=== PATIENT | male | born 1950 | race Caucasian/White ===

== ENCOUNTER → 2016-10-14 | Outpatient (REF) | payer MEDICARE, MEDICAID ==
[~2016-10-14] MED LIST: /ADVA50050; /AMIO20TA OR; /TIOT18INH INH; ACEP650S PR; ACET-654 PO; ACET650S3 PR; ADV250INH INH; ALBU83IN INH; ALDA25TA2 OR; ALDA25TA2 PO; AMLO10TA PO; AMOX875T2 PO; ASPI325T OR; ASPI81TA13 PO; ASPI81TA83 OR; ASPI81TA85 PO; ATOR1TAB19 PO; AVEELOT EXT; BISO10TA PO; CARDIZEM PO; CELE20TA PO; CICL0.776 TOP; COLA100C2 OR; DIGO0.25 PO; DILT240C56 PO; DULC10SU2 PR; DULC5TAB PO; ENEMENE3 PR; FLEEENE4 PR; FURO1TAB15 PO; GEMF600T PO; HALO20TA PO; LANO0.1211 OR; LASI40TA OR; LEVA12INH INH; LEVA500T PO; METF500T PO; METO25TAB PO; MILKSUS PO; MULTCAP11 PO; NICO21DI4 TD; OMEP20CA3 PO; OXYGEN INH; POTA1TAB14 PO; PRED10TA PO; PRED10TA2 OR; PRED20TA PO; PRED5TA PO; PRED5TAB OR; PRIL20CA OR; QUET5TAB PO; SENO8.6T5 OR; SPIR1CAP INH; TORS100T12 PO; TYLE325T5 PO; VIBR100C PO; XOPE1.252 IN; ZOCO5TAB OR; cpap; mucinex PO
[2016-10-14 10:30] LABS: CREATININE FOR GFR 2.11 MG/DL (0.70-1.30); GLOMERULAR FILTRATION RATE 33.6 (>49); POTASSIUM SERUM 4.2 MEQ/L (3.5-5.1)
== END ==
LOC: SKLAB4 10:14
PROVIDERS: ATTEND Family Medicine
DX: I50.9 Heart failure, unspecified (principal); Z79.899 Other long term (current) drug therapy

== ENCOUNTER → 2016-11-04 | Outpatient (REF) | payer MEDICARE, MEDICAID ==
[~2016-11-04] MED LIST changes: -DILT240C56 PO; +DILT240C77 PO; +TORS100T PO; -TORS100T12 PO
[2016-11-04 08:57] LABS: ALBUMIN 3.1 GM/DL (3.2-5.2); ALBUMIN/GLOBULIN RATIO 0.65 (1.00-1.93); BILIRUBIN,DIRECT 0.1 MG/DL (0.0-0.2); BILIRUBIN,TOTAL 0.3 MG/DL (0.2-1.0); CALCIUM LEVEL 8.6 MG/DL (8.8-10.2); CREATININE FOR GFR 2.24 MG/DL (0.70-1.30); GLOMERULAR FILTRATION RATE 31.4 (>49); THYROXINE (T4) 6.2 UG/DL (4.5-12.0); TOTAL PROTEIN 7.9 GM/DL (6.4-8.2)
== END ==
LOC: SKLAB4 09:15
PROVIDERS: ATTEND Family Medicine
DX: I50.9 Heart failure, unspecified (principal); E11.9 Type 2 diabetes mellitus without complications; R56.9 Unspecified convulsions

== ENCOUNTER → 2017-01-04 | Outpatient (REF) | payer MEDICARE, MEDICAID ==
[2017-01-04 22:13] LABS: CALCIUM LEVEL 7.7 MG/DL (8.8-10.2); CREATININE FOR GFR 1.64 MG/DL (0.70-1.30); DIGOXIN LEVEL 0.8 NG/ML (0.5-2.0); POTASSIUM SERUM 4.3 MEQ/L (3.5-5.1)
== END ==
LOC: SKLAB4 19:45
PROVIDERS: ATTEND Family Medicine
DX: R19.7 Diarrhea, unspecified (principal)

== ENCOUNTER → 2017-02-17 | Outpatient (REF) | payer MEDICARE, MEDICAID ==
[2017-02-17 08:54] LABS: CALCIUM LEVEL 8.7 MG/DL (8.8-10.2); CREATININE FOR GFR 1.83 MG/DL (0.70-1.30); GLOMERULAR FILTRATION RATE 39.6 (>49); POTASSIUM SERUM 3.9 MEQ/L (3.5-5.1)
== END ==
LOC: SKLAB4 11:31
PROVIDERS: ATTEND Family Medicine
DX: I50.9 Heart failure, unspecified (principal)

== ENCOUNTER → 2017-02-24 | Outpatient (REF) | payer MEDICARE, MEDICAID | LOC: SKLAB4 08:00 | PROVIDERS: ATTEND Family Medicine | DX: E03.9 Hypothyroidism, unspecified (principal) ==

== ENCOUNTER → 2017-03-11 | Outpatient (REF) | payer MEDICARE, MEDICAID | LOC: SKLAB4 13:38 | PROVIDERS: ATTEND Family Medicine | DX: E11.9 Type 2 diabetes mellitus without complications (principal) ==

== ENCOUNTER → 2017-03-12 | Outpatient (REF) | payer MEDICARE, MEDICAID | LOC: SKLAB4 16:54 | PROVIDERS: ATTEND Family Medicine | DX: Z00.00 Encounter for general adult medical examination without abnormal findings (principal) ==

== ENCOUNTER → 2017-03-17 | Outpatient (REF) | payer MEDICARE, MEDICAID | LOC: SKLAB4 08:26 | PROVIDERS: ATTEND Family Medicine | DX: E78.5 Hyperlipidemia, unspecified (principal); E03.9 Hypothyroidism, unspecified ==

== ENCOUNTER → 2017-03-24 | Outpatient (REF) | payer MEDICARE, MEDICAID ==
[2017-03-24 10:40] LABS: CHOLESTEROL LEVEL 150 MG/DL (<200); FERRITIN 76 NG/ML (26-388); TRIGLYCERIDES LEVEL 497 MG/DL (<150)
[2017-03-24 14:16] LABS: ANION GAP 8 MEQ/L (8-16); BLOOD UREA NITROGEN 9 MG/DL (7-18); CALCIUM LEVEL 8.6 MG/DL (8.8-10.2); CARBON DIOXIDE LEVEL 29 MEQ/L (21-32); CHLORIDE LEVEL 100 MEQ/L (98-107); CREATININE FOR GFR 1.49 MG/DL (0.70-1.30); GLOMERULAR FILTRATION RATE 50.2 (>49); GLUCOSE, FASTING 168 MG/DL (80-110); POTASSIUM SERUM 4.3 MEQ/L (3.5-5.1); SODIUM LEVEL 137 MEQ/L (136-145)
== END ==
LOC: SKLAB4 09:44
PROVIDERS: ATTEND Family Medicine
DX: E11.9 Type 2 diabetes mellitus without complications (principal); D64.9 Anemia, unspecified

== ENCOUNTER → 2017-04-10 | Outpatient (REF) | payer MEDICARE, MEDICAID ==
[~2017-04-10] MED LIST changes: -ACET-654 PO; +ACET1TAB17 PO; -ASPI81TA13 PO; +ASPI81TA24 PO; +ENEMENE16 PR; -ENEMENE3 PR; -FURO1TAB15 PO; +FURO80TA2 PO; +LEVA1TAB2 PO; -LEVA500T PO; -METF500T PO; +METF500T13 PO
== END ==
LOC: SKLAB4 09:49
PROVIDERS: ATTEND Family Medicine
DX: E03.9 Hypothyroidism, unspecified (principal)

== ENCOUNTER → 2017-04-21 | Outpatient (REF) | payer MEDICARE, MEDICAID ==
[2017-04-21 10:53] LABS: CALCIUM LEVEL 8.6 MG/DL (8.8-10.2); CREATININE FOR GFR 1.56 MG/DL (0.70-1.30); GLOMERULAR FILTRATION RATE 47.5 (>49); POTASSIUM SERUM 4.4 MEQ/L (3.5-5.1)
== END ==
LOC: SKLAB4 09:46
PROVIDERS: ATTEND Family Medicine
DX: E11.9 Type 2 diabetes mellitus without complications (principal); I50.32 Chronic diastolic (congestive) heart failure

== ENCOUNTER → 2017-05-26 | Outpatient (REF) | payer MEDICARE, MEDICAID ==
[2017-05-26 10:50] LABS: CALCIUM LEVEL 8.7 MG/DL (8.8-10.2); CREATININE FOR GFR 1.59 MG/DL (0.70-1.30); GLOMERULAR FILTRATION RATE 46.5 (>49)
[2017-05-26 10:58] LABS: POTASSIUM SERUM 6.3 MEQ/L (3.5-5.1)
== END ==
LOC: SKLAB4 09:37
PROVIDERS: ATTEND Family Medicine
DX: I50.9 Heart failure, unspecified (principal)

== ENCOUNTER → 2017-05-27 | Outpatient (CLI) | payer MEDICARE ==
--- NOTE | 2017-06-01 10:30 | SLEEPCENT ---
DATE OF PROCEDURE: 05/27/2017 REFERRING PROVIDER: Dr. Godinez INTERPRETATION: Nocturnal recording polysomnography was performed for retitration of bilevel therapy on this patient with severe obstructive sleep apnea with an respiratory disturbance index (RDI) of 57.5 with significant nocturnal hypoxemia. Prior to the retitration, the patient was on bilevel therapy 18/10 with 10 liter of oxygen bleed in. A total of 7 hours and 37 minutes of data was reviewed for the entire titration. 362 minutes of sleep identified. Sleep latency was 4.5 minutes. Rapid eye movement( REM) latency was 62.5 minutes. No slow-wave sleep was identified. Sleep efficiency was 86.8%. In reviewing hypnogram, his sleep appeared quite fragmented. Electrocardiogram (EKG) appeared irregularly irregular and I could not clearly identify T waves on the tracing. Average heart rate was 88 beats per minute. Speeding and slowing were noted surrounding some respiratory events. No epileptiform discharge observed. The patient had been fitted with a Resmed Quattro full face of small size, bilevel therapy at 18/10 with a 10 liter bleed in was applied to the circuit and the lights were dimmed. Throughout the titration, bilevel therapy was increased from 18/10 to a maximum of 18/14, though he appeared to do reasonably well on 18/12. His oxygen was able to be titrated down from 10 to 7 liters. On the recommended pressure of 18/12 with a 7 liter bleed in, his apnea-hypopnea index (AHI) was 1.1 and his respiratory arousal index (PEREZ) was 1.4. Oxygen saturations were in the 90th percentile. Periodic limb movements were elevated at 37.5. IMPRESSION: 1. Obstructive sleep apnea, severe, reasonably palliated on bilevel therapy of 18/12, though his sleep was quite fragmented. Very little REM sleep was seen throughout the titration. 2. Hypoxemia requiring 7 liter oxygen bleed in to maintain saturations in the 90th percentile. 3. Periodic limb movements, moderate. RECOMMENDATIONS: Recommend continuation of bilevel therapy at 18/12 with a 7 liter bleed in via a small Resmed Quattro full face mask or mask of his preference. In reviewing the data, it may be possible to further lower his oxygen bleed in and follow him by serial overnight oximetry. Clinical correlation will also be necessary for eradication of symptoms. [facility]
== END ==
LOC: M SLEEP 19:15
PROVIDERS: ATTEND Internal Medicine Pulmonary Disease
DX: G47.33 Obstructive sleep apnea (adult) (pediatric) (principal)

== ENCOUNTER → 2017-05-30 | Outpatient (REF) | payer MEDICARE ==
[2017-05-30 07:23] LABS: CALCIUM LEVEL 8.4 MG/DL (8.8-10.2); CREATININE FOR GFR 1.54 MG/DL (0.70-1.30); GLOMERULAR FILTRATION RATE 48.2 (>49); POTASSIUM SERUM 4.1 MEQ/L (3.5-5.1)
== END ==
LOC: SKLAB4 08:00
PROVIDERS: ATTEND Family Medicine
DX: I50.9 Heart failure, unspecified (principal)

== ENCOUNTER → 2017-06-05 | Outpatient (REF) | payer MEDICARE ==
[2017-06-05 08:36] LABS: CALCIUM LEVEL 8.7 MG/DL (8.8-10.2); CREATININE FOR GFR 1.67 MG/DL (0.70-1.30); GLOMERULAR FILTRATION RATE 43.9 (>49); POTASSIUM SERUM 4.2 MEQ/L (3.5-5.1)
== END ==
LOC: SKLAB4 12:27
PROVIDERS: ATTEND Family Medicine
DX: I50.9 Heart failure, unspecified (principal)

== ENCOUNTER → 2017-06-18 | Outpatient (REF) | payer MEDICARE | LOC: SKLAB4 09:32 | PROVIDERS: ATTEND Family Medicine | DX: G47.30 Sleep apnea, unspecified (principal) ==

== ENCOUNTER → 2017-06-23 | Outpatient (REF) | payer MEDICARE ==
[2017-06-23 14:02] LABS: CALCIUM LEVEL 8.2 MG/DL (8.8-10.2); CREATININE FOR GFR 1.52 MG/DL (0.70-1.30); GLOMERULAR FILTRATION RATE 48.9 (>49); POTASSIUM SERUM 4.7 MEQ/L (3.5-5.1)
== END ==
LOC: SKLAB4 09:53
PROVIDERS: ATTEND Family Medicine
DX: I50.9 Heart failure, unspecified (principal)

== ENCOUNTER → 2017-07-21 | Outpatient (REF) | payer MEDICARE ==
[2017-07-21 08:42] LABS: MEAN CORPUSCULAR HGB CONC 31.6 g/dl (32.0-36.5); MEAN CORPUSCULAR VOLUME 94.8 fl (80.0-96.0); RED CELL DISTRIBUTION WIDTH 15.5 % (11.5-14.5); WHITE BLOOD COUNT 10.6 10^3/uL (4.0-10.0)
[2017-07-21 09:19] LABS: CALCIUM LEVEL 8.5 MG/DL (8.8-10.2); CREATININE FOR GFR 1.28 MG/DL (0.70-1.30); DIGOXIN LEVEL 0.6 NG/ML (0.5-2.0); GLOMERULAR FILTRATION RATE 59.7 (>49); POTASSIUM SERUM 4.2 MEQ/L (3.5-5.1)
== END ==
LOC: SKLAB4 09:43
PROVIDERS: ATTEND Family Medicine
DX: E11.9 Type 2 diabetes mellitus without complications (principal); I50.9 Heart failure, unspecified

== ENCOUNTER → 2017-08-25 | Outpatient (REF) | payer MEDICARE ==
[2017-08-25 08:50] LABS: ANION GAP 7 MEQ/L (8-16); BLOOD UREA NITROGEN 13 MG/DL (7-18); CALCIUM LEVEL 9.2 MG/DL (8.8-10.2); CARBON DIOXIDE LEVEL 29 MEQ/L (21-32); CHLORIDE LEVEL 105 MEQ/L (98-107); CREATININE FOR GFR 0.87 MG/DL (0.70-1.30); GLOMERULAR FILTRATION RATE > 60.0 (>49); GLUCOSE, FASTING 85 MG/DL (80-110); POTASSIUM SERUM 4.5 MEQ/L (3.5-5.1); SODIUM LEVEL 141 MEQ/L (136-145)
== END ==
LOC: SKLAB4 12:30
PROVIDERS: ATTEND Family Medicine
DX: I50.9 Heart failure, unspecified (principal)

== ENCOUNTER → 2017-09-22 | Outpatient (REF) | payer MEDICARE ==
[2017-09-22 11:08] LABS: ANION GAP 9 MEQ/L (8-16); BLOOD UREA NITROGEN 15 MG/DL (7-18); CALCIUM LEVEL 9.2 MG/DL (8.8-10.2); CARBON DIOXIDE LEVEL 28 MEQ/L (21-32); CHLORIDE LEVEL 101 MEQ/L (98-107); CREATININE FOR GFR 0.86 MG/DL (0.70-1.30); GLOMERULAR FILTRATION RATE > 60.0 (>49); GLUCOSE, FASTING 88 MG/DL (80-110); POTASSIUM SERUM 4.8 MEQ/L (3.5-5.1); SODIUM LEVEL 138 MEQ/L (136-145)
== END ==
LOC: SKLAB4 09:41
PROVIDERS: ATTEND Family Medicine
DX: I50.9 Heart failure, unspecified (principal)

== ENCOUNTER → 2017-10-20 | Outpatient (REF) | payer MEDICARE ==
[2017-10-20 10:51] LABS: VALPROIC ACID (DEPAKOTE) 18.1 UG/ML (50.0-100.0)
[2017-10-20 11:00] LABS: ESTIMATED AVERAGE GLUCOSE 111 MG/DL (60-110); HEMOGLOBIN A1c 5.5 %
[2017-10-20 11:25] LABS: ANION GAP 9 MEQ/L (8-16); BLOOD UREA NITROGEN 18 MG/DL (7-18); CALCIUM LEVEL 9.2 MG/DL (8.8-10.2); CARBON DIOXIDE LEVEL 29 MEQ/L (21-32); CHLORIDE LEVEL 97 MEQ/L (98-107); CREATININE FOR GFR 0.91 MG/DL (0.70-1.30); DIGOXIN LEVEL 0.6 NG/ML (0.5-2.0); GLOMERULAR FILTRATION RATE > 60.0 (>49); GLUCOSE, FASTING 103 MG/DL (80-110); SODIUM LEVEL 135 MEQ/L (136-145)
[2017-10-20 11:26] LABS: POTASSIUM SERUM 5.2 MEQ/L (3.5-5.1)
== END ==
LOC: SKLAB4 12:17
DX: E11.9 Type 2 diabetes mellitus without complications (principal); I50.9 Heart failure, unspecified; I48.2 Chronic atrial fibrillation
CPT/HCPCS: 80162

== ENCOUNTER → 2017-10-21 | Outpatient (REF) | payer MEDICARE ==
[2017-10-21 13:34] LABS: BEDSIDE GLUCOSE CONFIRMATION 47 MG/DL (LESS THAN 200)
[2017-10-21 16:25] LABS: HEMATOCRIT 39.8 % (42.0-52.0); HEMOGLOBIN 12.6 g/dl (14.0-18.0); MEAN CORPUSCULAR HEMOGLOBIN 27.8 pg (27.0-33.0); MEAN CORPUSCULAR HGB CONC 31.7 g/dl (32.0-36.5); MEAN CORPUSCULAR VOLUME 87.9 fl (80.0-96.0); PLATELET COUNT, AUTOMATED 397 10^3/uL (150-450); RED BLOOD COUNT 4.53 10^6/uL (4.30-6.10); RED CELL DISTRIBUTION WIDTH 15.2 % (11.5-14.5); WHITE BLOOD COUNT 13.3 10^3/uL (4.0-10.0)
== END ==
LOC: SKLAB4 12:46
DX: E16.2 Hypoglycemia, unspecified (principal)
CPT/HCPCS: 71046

== ENCOUNTER → 2017-11-08 | Outpatient (REF) | payer MEDICARE | LOC: SKLAB4 18:45 | DX: R19.5 Other fecal abnormalities (principal) | CPT/HCPCS: 82270 ==

== ENCOUNTER → 2017-11-09 | Outpatient (REF) | payer MEDICARE ==
[2017-11-09 16:36] LABS: INFLUENZA A AMPLIFICATION NEGATIVE (NEGATIVE); INFLUENZA B AMPLIFICATION NEGATIVE (NEGATIVE)
[2017-11-09 17:09] LABS: HEMATOCRIT 35.8 % (42.0-52.0); HEMOGLOBIN 11.6 g/dl (14.0-18.0); MEAN CORPUSCULAR HEMOGLOBIN 27.4 pg (27.0-33.0); MEAN CORPUSCULAR HGB CONC 32.4 g/dl (32.0-36.5); MEAN CORPUSCULAR VOLUME 84.6 fl (80.0-96.0); PLATELET COUNT, AUTOMATED 436 10^3/uL (150-450); RED BLOOD COUNT 4.23 10^6/uL (4.30-6.10); RED CELL DISTRIBUTION WIDTH 17.8 % (11.5-14.5)
[2017-11-09 17:30] LABS: ANION GAP 7 MEQ/L (8-16); BLOOD UREA NITROGEN 19 MG/DL (7-18); CALCIUM LEVEL 9.4 MG/DL (8.8-10.2); CARBON DIOXIDE LEVEL 31 MEQ/L (21-32); CHLORIDE LEVEL 94 MEQ/L (98-107); CREATININE FOR GFR 0.93 MG/DL (0.70-1.30); GLOMERULAR FILTRATION RATE > 60.0 (>49); GLUCOSE, FASTING 151 MG/DL (70-100); POTASSIUM SERUM 5.1 MEQ/L (3.5-5.1); SODIUM LEVEL 132 MEQ/L (136-145)
== END ==
LOC: SKLAB4 14:33
DX: R91.8 Other nonspecific abnormal finding of lung field (principal); R50.9 Fever, unspecified; R06.02 Shortness of breath; K92.1 Melena
CPT/HCPCS: 71045

== ENCOUNTER → 2017-11-09 | Outpatient (REF) | payer MEDICARE | LOC: SKLAB4 07:48 | DX: K92.1 Melena (principal) ==

== ENCOUNTER → 2017-11-10 | Outpatient (REF) | payer MEDICARE ==
[2017-11-10 10:02] LABS: BASO % 0.1 % (0.0-1.0); HEMATOCRIT 38.5 % (42.0-52.0); HEMOGLOBIN 12.3 g/dl (14.0-18.0); IMMATURE GRANULOCYTE # 0.2 10^3/uL (0-0); IMMATURE GRANULOCYTE % 0.9 % (0-0); LYMPH # 1.8 10^3/uL (1.5-4.5); LYMPH % 7.9 % (24.0-44.0); MEAN CORPUSCULAR HEMOGLOBIN 27.5 pg (27.0-33.0); MEAN CORPUSCULAR HGB CONC 31.9 g/dl (32.0-36.5); MEAN CORPUSCULAR VOLUME 86.1 fl (80.0-96.0); MONO # 1.3 10^3/uL (0.0-0.8); MONO % 5.8 % (0.0-5.0); NEUTROPHILS # 19.9 10^3/uL (1.8-7.7); NEUTROPHILS % 85.3 % (36.0-66.0); PLATELET COUNT, AUTOMATED 399 10^3/uL (150-450); RED BLOOD COUNT 4.47 10^6/uL (4.30-6.10); RED CELL DISTRIBUTION WIDTH 17.8 % (11.5-14.5); WHITE BLOOD COUNT 23.3 10^3/uL (4.0-10.0)
[2017-11-10 10:31] LABS: ANION GAP 8 MEQ/L (8-16); BLOOD UREA NITROGEN 22 MG/DL (7-18); CALCIUM LEVEL 9.6 MG/DL (8.8-10.2); CARBON DIOXIDE LEVEL 31 MEQ/L (21-32); CHLORIDE LEVEL 98 MEQ/L (98-107); CREATININE FOR GFR 0.83 MG/DL (0.70-1.30); GLOMERULAR FILTRATION RATE > 60.0 (>49); GLUCOSE, FASTING 178 MG/DL (70-100); POTASSIUM SERUM 4.8 MEQ/L (3.5-5.1); SODIUM LEVEL 137 MEQ/L (136-145)
== END ==
LOC: SKLAB5 07:12 → SKLAB4 07:15
DX: J18.9 Pneumonia, unspecified organism (principal)
CPT/HCPCS: 36415

== ENCOUNTER → 2017-11-11 | Outpatient (CLI) | payer MEDICARE, MEDICAID | LOC: M RAD 07:19 | DX: R91.8 Other nonspecific abnormal finding of lung field (principal) | CPT/HCPCS: 71250 ==

== ENCOUNTER → 2017-11-23 | Outpatient (REF) | payer MEDICARE, MEDICAID ==
[2017-11-23 09:08] LABS: HEMATOCRIT 38.7 % (42.0-52.0); HEMOGLOBIN 12.5 g/dl (14.0-18.0); MEAN CORPUSCULAR HEMOGLOBIN 27.5 pg (27.0-33.0); MEAN CORPUSCULAR HGB CONC 32.3 g/dl (32.0-36.5); MEAN CORPUSCULAR VOLUME 85.2 fl (80.0-96.0); PLATELET COUNT, AUTOMATED 323 10^3/uL (150-450); RED BLOOD COUNT 4.54 10^6/uL (4.30-6.10); RED CELL DISTRIBUTION WIDTH 20.9 % (11.5-14.5); WHITE BLOOD COUNT 21.4 10^3/uL (4.0-10.0)
[2017-11-23 09:23] LABS: ANION GAP 8 MEQ/L (8-16); BLOOD UREA NITROGEN 24 MG/DL (7-18); CARBON DIOXIDE LEVEL 37 MEQ/L (21-32); CHLORIDE LEVEL 93 MEQ/L (98-107); GLOMERULAR FILTRATION RATE > 60.0 (>49); GLUCOSE, FASTING 124 MG/DL (70-100); NT-PRO BNP 4388 PG/ML (<125); POTASSIUM SERUM 4.9 MEQ/L (3.5-5.1); SODIUM LEVEL 138 MEQ/L (136-145)
== END ==
LOC: SKLAB4 07:15
DX: I50.9 Heart failure, unspecified (principal)
CPT/HCPCS: 71045